=== PATIENT | male | born 1995 | race Caucasian/White ===

== ENCOUNTER → 2017-06-09 | Outpatient (CLI) | payer OTHER ==
--- NOTE | 2017-06-09 13:51 | KCIC ---
CT of the paranasal sinuses HISTORY: Nasal polyp. TECHNIQUE: Standard noncontrast imaging. Exposure: One or more of the following individualized dose reduction techniques were utilized for this examination: 1. Automated exposure control 2. Adjustment of the mA and/or kV according to patient size 3. Use of iterative reconstruction technique. FINDINGS: No discrete mass is identified. A polyp could be difficult to distinguish from the normal nasal mucosal tissue however. The paranasal sinuses are clear. No mucosal thickening or fluid levels. The ostiomeatal units are patent. The orbits appear unremarkable. IMPRESSION: No evidence of active paranasal sinus disease. Electronically signed by: Chris Spence MD (06/09/2017 1:49 PM) [id number]
== END | disposition home or self-care (01) ==
LOC: KCIC CT 12:49
PROVIDERS: ATTEND Otolaryngology
DX: J33.9 Nasal polyp, unspecified (principal)
CPT/HCPCS: 70486